=== PATIENT | female | born 1955 | race Hispanic/Latino ===

== ENCOUNTER → 2024-01-08 | Outpatient (CLI) | payer MEDICARE | END | disposition home or self-care (01) | LOC: LAB 10:37 | PROVIDERS: ATTEND Internal Medicine Cardiovascular Disease | DX: R00.2 Palpitations (principal) | CPT/HCPCS: 36415; 84443 ==

== ENCOUNTER → 2024-03-04 | Outpatient (CLI) | payer MEDICARE | END | disposition home or self-care (01) | LOC: SHCH 13:14 | PROVIDERS: ATTEND Internal Medicine Cardiovascular Disease | DX: I08.8 Other rheumatic multiple valve diseases (principal); R07.9 Chest pain, unspecified | CPT/HCPCS: 93306 ==

== ENCOUNTER 2024-04-05 07:50 | Day surgery (SDC) | payer MEDICARE ==
[2024-04-01 11:25] VITALS: BP 113/64; PULSE 80; RESP 19
[2024-04-01 11:44] LABS: BASOPHILS # (AUTO) 0.04 K/uL (0.00-0.20); BASOPHILS % (AUTO) 0.6 % (0.0-5.0); EOSINOPHILS # (AUTO) 0.07 K/uL (0.00-0.70); EOSINOPHILS % (AUTO) 1.1 % (0.0-8.0); HEMATOCRIT 40.6 % (36-48); IMMATURE GRANULOCYTE ABSOLUTE 0.02 K/uL (0-1); LYMPHOCYTES # (AUTO) 1.8 K/uL (1.0-4.8); LYMPHOCYTES % (AUTO) 27.3 % (21.0-51.0); MEAN CORPUSCULAR HGB CONC 33.3 g/dL (32.0-36.0); MEAN CORPUSCULAR VOLUME 96.2 fL (79-99); MONOCYTES # (AUTO) 0.4 K/uL (0.1-1.0); MONOCYTES % (AUTO) 6.4 % (3.0-13.0); NEUTROPHILS # (AUTO) 4.1 K/uL (1.8-7.7); NEUTROPHILS % (AUTO) 64.3 % (40.0-77.0); PLATELET COUNT (AUTO) 253 K/uL (130-400); RED BLOOD CELL COUNT(AUTO) 4.22 MIL/uL (4.00-5.50); RED CELL DISTRIBUTION WIDTH 12.8 % (11.0-15.5); WHITE BLOOD COUNT (AUTO) 6.4 K/uL (4.8-10.8)
[2024-04-01 12:10] LABS: PROTHROMBIN TIME 10.8 SEC (9.6-11.6)
[2024-04-01 12:12] LABS: PARTIAL THROMBOPLASTIN TIME 26.5 SEC (26.3-35.5)
[2024-04-01 12:15] LABS: CREATININE 0.9 mg/dL (0.5-1.0); POTASSIUM 4.4 mmol/L (3.5-5.1)
[2024-04-05] VITALS (20 sets, daily range): BP systolic 111–136; BP diastolic 44–75; PULSE 55–86; RESP 10–17
[~2024-04-05] VITALS: Ht 157.5 cm; Wt 71.4 kg
[~2024-04-05 07:50] MED LIST: ALEN35TA53 PO; ESTR1TAB17 PO
[2024-04-05] MEDS: CEFAZOLIN SODIUM 2 GM VIAL ONE (08:59)
[2024-04-05] MEDS: LACTATED RINGERS 1000ML 1,000 ML IV ONE (09:00)
[2024-04-05] MEDS ORDERED: BUPIVACAINE/PF 0.5% 30ML VIAL ONE (09:27)
[2024-04-05] MEDS ORDERED: DEXAMETHASONE SOD PHOSPHATE 10MG/ML 1ML VIAL ONE (09:52)
[2024-04-05] MEDS ORDERED: KETOROLAC 30MG VIAL (30MG/ML) ONE ×2 (09:52→11:03)
[2024-04-05] MEDS ORDERED: LIDOCAINE PF 100MG/5ML (2%) SYRINGE 5ML ONE (09:52)
[2024-04-05] MEDS ORDERED: ONDANSETRON 4MG INJ ONE (09:53)
[2024-04-05] MEDS ORDERED: NEOSTIGMINE METHYLSULFATE 1MG/ML IV ONE (09:53)
[2024-04-05] MEDS ORDERED: FENTANYL CITRATE PF 50 MCG/1 ML 2ML VIAL ONE ×2 (09:53→10:36)
[2024-04-05] MEDS ORDERED: PROPOFOL 10 MG/ML 20ML VIAL IV ONE (09:53)
[2024-04-05] MEDS ORDERED: GLYCOPYRROLATE 0.2 MG/ML 5 ML VIAL ONE (09:53)
[2024-04-05] MEDS ORDERED: MIDAZOLAM HCL 1 MG/ML 2ML VIAL ONE (09:54)
[2024-04-05] MEDS ORDERED: ROCURONIUM BROMIDE 10MG/1ML 5ML VL ONE (09:54)
[2024-04-05] MEDS ORDERED: IOHEXOL-350 50ML VIAL IV ONE (09:55)
[2024-04-05] MEDS ORDERED: ROPIVACAINE 0.5% 5MG/ML 30ML ONE (09:57)
[2024-04-05] MEDS ORDERED: TRAM50TA4 PO (11:17)
[2024-04-05] MEDS ORDERED: METH-662 PO (11:17)
[2024-04-05] MEDS ORDERED: GABA-529 PO (11:17)
[2024-04-05] MEDS ORDERED: DOCU-116 PO (11:17)
[2024-04-05] MEDS: ACETAMINOPHEN 1,000 MG/100 ML VIAL IV ONE (12:25)
[2024-04-05] MEDS: ONDANSETRON 4MG INJ ONE (12:31)
== END 2024-04-05 12:40 | disposition home or self-care (01) ==
LOC: DAH 07:50 → EDSTATUS 10:00 → DAH 12:40
PROVIDERS: ATTEND Surgery
DX: K80.10 Calculus of gallbladder with chronic cholecystitis without obstruction (principal); M81.0 Age-related osteoporosis without current pathological fracture; Z90.710 Acquired absence of both cervix and uterus; Z79.01 Long term (current) use of anticoagulants; Z79.899 Other long term (current) drug therapy
CPT/HCPCS: 80048; 85025; 85610; 85730; 86850 ×2; 86900 ×2; 86901 ×2; 36415 ×2; 93005; 64488; 47563; 88304; 74300; A4600 ×2; A4663; J7030; A4215 ×2; C1758; J7120; J3010 ×2; J1100; J3490 ×2; J2001; J2250; J2704; J2405 ×2; J1885 ×2; J2710; J2795; Q9967; J0690; G0168; A4649 ×2; A4930; A4223; A4213; A4222; A4221; J0665

== ENCOUNTER 2024-08-03 18:12 | Emergency (ER) | payer MEDICARE ==
[~2024-08-03] VITALS: Ht 165.1 cm; Wt 70.3 kg
[2024-08-03 18:12] VITALS: TEMP 97.6
[~2024-08-03 18:12] MED LIST changes: +DOCU-116 PO; +GABA-529 PO; +METH-662 PO; +TRAM50TA4 PO
[2024-08-03 19:14] LABS: APPEARANCE,URINE CLEAR (CLEAR); BILIRUBIN,URINE NEGATIVE (NEGATIVE); COLOR,URINE COLORLESS (YELLOW); GLUCOSE, URINE (UA) NEGATIVE (NEGATIVE); KETONES,URINE NEGATIVE (NEGATIVE); LEUKOCYTE ESTERASE ,URINE NEGATIVE Leu/uL (NEGATIVE); NITRATE,URINE NEGATIVE (NEGATIVE); OCCULT BLOOD,URINE NEGATIVE (NEGATIVE); PROTEIN,URINE NEGATIVE (NEGATIVE); UROBILINOGEN,URINE 0.2 mg/dL (0.2-1.0)
[2024-08-03 19:14] LABS: BASOPHILS # (AUTO) 0.08 K/uL (0.00-0.20); BASOPHILS % (AUTO) 0.9 % (0.0-5.0); EOSINOPHILS # (AUTO) 0.12 K/uL (0.00-0.70); EOSINOPHILS % (AUTO) 1.3 % (0.0-8.0); HEMATOCRIT 38.6 % (36-48); IMMATURE GRANULOCYTE ABSOLUTE 0.02 K/uL (0-1); LYMPHOCYTES # (AUTO) 2.7 K/uL (1.0-4.8); LYMPHOCYTES % (AUTO) 30.1 % (21.0-51.0); MEAN CORPUSCULAR HEMOGLOBIN 31.9 pg (27.0-33.0); MEAN CORPUSCULAR HGB CONC 33.9 g/dL (32.0-36.0); MEAN CORPUSCULAR VOLUME 93.9 fL (79-99); MONOCYTES # (AUTO) 0.6 K/uL (0.1-1.0); MONOCYTES % (AUTO) 6.5 % (3.0-13.0); NEUTROPHILS # (AUTO) 5.5 K/uL (1.8-7.7); PLATELET COUNT (AUTO) 252 K/uL (130-400); RED BLOOD CELL COUNT(AUTO) 4.11 MIL/uL (4.00-5.50); RED CELL DISTRIBUTION WIDTH 12.6 % (11.0-15.5)
[2024-08-03 19:17] LABS: ADD UA MICROSCOPIC YES
--- NOTE | 2024-08-03 19:17 | ERN ---
ED Note History of Present Illness Stated Complaint: LEFT LOWER BACK PAIN Chief Complaint: Back Pain-No Injury Time Seen by MD: 18:15 Time Seen by Midlevel: 18:15 Dictation: The patient is a 69-year-old female with a history of cholecystectomy who pres ents to the emergency department with complaints of left flank pain onset Thursday. Patient denies any urinary discomfort, hematuria, fevers, nausea vomiting or diarrhea, back trauma, urinary or fecal incontinence. Allergies: Coded Allergies: No Known Drug Allergies (Unverified Allergy, Unknown, 04/01/24) Home Meds Active Scripts Methocarbamol (Robaxin) 750 Mg Tab, 500 MG PO TID, #15 TAB 0 Refills Prov:HEMANTH CRUZ MD 04/05/24 Gabapentin (Gabapentin) 100 Mg Capsule, 100 MG PO TID, #15 CAP 0 Refills Prov:HEMANTH CRUZ MD 04/05/24 Docusate Sodium (Colace) 100 Mg Capsule, 100 MG PO BID, #30 CAP 0 Refills Prov:HEMANTH CRUZ MD 04/05/24 Tramadol Hcl (Tramadol HCl) 50 Mg Tablet, 50 MG PO Q6HPRN PRN for PAIN, #28 TAB 0 Refills Prov:HEMANTH CRUZ MD 04/05/24 Reported Medications Alendronate Sodium (Alendronate Sodium) 35 Mg Tablet, 35 MG PO QWEEK, TAB 04/01/24 Estradiol (Estradiol) 1 Mg Tablet, 1 MG PO DAILY, TAB 04/01/24 Past Medical History Past Medical History: Gallstones Surgical History: Cholecystectomy RN Note Reviewed/Agreed w/PFSH: Yes Review of System Dictation Constitutional: Negative for fever,chills, and weight loss Eyes: Negative for injury, pain,redness, and discharge ENT: Negative for injury,pain or swelling Cardiovascular: Negative for chest pain, palpitations, and edema Respiratory: Negative for shortness of breath, cough, and wheezing, Abdomen/GI: Negative for abdominal pain, nausea, vomiting, diarrhea, and constipation Back: Positive for left forearm pain : Negative for injury, bleeding and discharge MS/Extremity: Negative for injury and deformity Skin: Negative for rash, and discoloration Neuro: Negative for headache, weakness, numbness, tingling, and seizure Psych: Negative for suicide ideation, homicidal ideation, and hallucinations Initial Vital Sign VS Vital Signs Date Time Temp Pulse Resp B/P (MAP) Pulse Ox O2 Delivery O2 Flow Rate FiO2 08/03/24 18:12 97.5 90 14 159/67 96 Room Air 0 08/03/24 20:53 21 Physical Exam Dictation Vital Signs reviewed General Appearance: Alert, oriented x 3, no acute distress, well developed, nourished. Head and Face: non-traumatic. Eyes: PERRL, pink conjunctivas, eyelid no trauma, anterior chamber with arcus senilis. Ears: Pinnas intact and no signs of trauma or erythema ear canals clear and no discharge TM no erythema Nose: No discharge, no bleeding. Oropharynx: Mouth normal, tongue pink. pharynx clear,no erythema, tonsils no exudates, no abscesses noted, mucous membrane moist Neck: Supple, non-tender, no thyromegaly, no masses, no JVD, no bruits Breast:Deferred Chest:No tenderness, no crepitus, no paradoxical movement, no retractions Lungs:Clear, well-ventilated, symmetric, no rales, no wheezing, no rhonchi, no stridor, good breath sounds bilaterally Heart: Regular rate, regular rhythm, no murmur, no gallops Vascular: no peripheral edema, Abdomen: Soft, positive bowel sounds, nondistended, no guarding, nontender, no rebound, no masses no hepatomegaly, no splenomegaly, no Cabello's sign, no hernias. Rectal: Deferred Genital: Deferred Neurological: Normal speech, motor function intact, sensory function intact Musculoskeletal: Neck nontender, full range of motion, back nontender, full range of motion, Extremities: nontender, full range of motion Skin: Color pink, dry, no turgor, no rash, no lacerations, no abrasions, no contusions. Lymphatic: Deferred Results (Laboratory/Radiology) Laboratory/Radiology Laboratory Tests Test 08/03/24 19:01 08/03/24 19:04 Urine Color COLORLESS (YELLOW) Urine Appearance CLEAR (CLEAR) Urine pH 7.0 (5.0-8.0) Urine Specific [place] 1.005 (1.001-1.031) Urine Protein NEGATIVE mg/dL (NEGATIVE) Urine Glucose (UA) NEGATIVE mg/dL (NEGATIVE) Urine Ketones NEGATIVE mg/dL (NEGATIVE) Urine Occult Blood NEGATIVE (NEGATIVE) Urine Nitrate NEGATIVE (NEGATIVE) Urine Bilirubin NEGATIVE mg/dL (NEGATIVE) Urine Urobilinogen 0.2 mg/dL (0.2-1.0) Urine Leukocyte Esterase NEGATIVE Agnes/uL Urine RBC 0-1 /HPF (0-1) Urine WBC 2-5 /HPF (0-1) H Urine Squamous Epithelial Cells RARE /HPF (0-2) Urine Bacteria RARE /HPF (None Seen) White Blood Count 9.0 K/uL (4.8-10.8) Red Blood Count 4.11 MIL/uL (4.00-5.50) Hemoglobin 13.1 g/dL (12.0-16.0) Hematocrit 38.6 % (36-48) Mean Corpuscular Volume 93.9 fL (79-99) Mean Corpuscular Hemoglobin 31.9 pg (27.0-33.0) Mean Corpuscular Hemoglobin Concent 33.9 g/dL (32.0-36.0) Red Cell Distribution Width 12.6 % (11.0-15.5) Platelet Count 252 K/uL (130-400) Mean Platelet Volume 8.8 fL (7.5-10.5) Immature Granulocyte % (Auto) 0.2 % (0-1) Neutrophils (%) (Auto) 61.0 % (40.0-77.0) Lymphocytes (%) (Auto) 30.1 % (21.0-51.0) Monocytes (%) (Auto) 6.5 % (3.0-13.0) Eosinophils (%) (Auto) 1.3 % (0.0-8.0) Basophils (%) (Auto) 0.9 % (0.0-5.0) Neutrophils # (Auto) 5.5 K/uL (1.8-7.7) Lymphocytes # (Auto) 2.7 K/uL (1.0-4.8) Monocytes # (Auto) 0.6 K/uL (0.1-1.0) Eosinophils # (Auto) 0.12 K/uL (0.00-0.70) Basophils # (Auto) 0.08 K/uL (0.00-0.20) Absolute Immature Granulocyte (auto 0.02 K/uL (0-1) Nucleated Red Blood Cells 0.0 % (0.0-0.19) Sodium Level 136 mmol/L (136-145) Potassium Level 4.0 mmol/L (3.5-5.1) Chloride Level 98 mmol/L (101-111) L Carbon Dioxide Level 32 mmol/L (21-32) Blood Urea Nitrogen 13 mg/dL (7-18) Creatinine 1.1 mg/dL (0.5-1.0) H Glomerular Filtration Rate Calc 54 mL/min (>90) Random Glucose 112 mg/dL (70-105) H Total Calcium 8.8 mg/dL (8.5-10.1) REASON: R/O KIDNEY STONES ORDERING PHYSICIAN: BETTINA BOTELLO PROCEDURE: ABD PEL WO - CT ABDOMEN/PELVIS W/O CONTRAST CT ABDOMEN/PELVIS W/O CONTRAST INDICATION: R/O KIDNEY STONES. Flank pain. TECHNIQUE: CT ABDOMEN/PELVIS W/O CONTRAST. Oral contrast was not given. Coronal and sagittal reformats were performed. CT was performed with one or more of the following dose reduction techniques: Automated exposure control, adjustment of the mA and/or kV according to the patient's size, or use of the iterative reconstruction technique. Comparison: 07/21/2017 FINDINGS: The noncontrast nature this study limits evaluation of abdominal viscera. No pulmonary consolidation or pleural effusion is seen. There is hepatic steatosis. Cholecystectomy changes are noted. The spleen, pancreas, and adrenal glands are within normal limits. No hydronephrosis. The urinary bladder is partially collapsed. Hysterectomy changes are seen. There is no bowel obstruction. Diverticulosis coli without evidence of acute diverticulitis. There is no CT evidence of acute appendicitis. No hydronephrosis or renal calculus seen. Atherosclerotic changes of the aorta with calcified plaques. Degenerative changes of the spine are seen. IMPRESSION: 1. There is no bowel obstruction. Diverticulosis coli without evidence of acute diverticulitis. There is no CT evidence of acute appendicitis. 2. No hydronephrosis or renal calculus seen. Labs Reviewed?: Yes ED Course ED Course Orders Procedure Category Date Status Time Cbc With Differential LAB 08/03/24 Complete 18:33 Urinalysis Profile LAB 08/03/24 Complete 18:33 Ct Abdomen/Pelvis W/O CT 08/03/24 Resulted Contrast 18:33 0.9%Nacl 1000ml (Ns PHA 08/03/24 Complete 1000ml) 19:00 Ketorolac PHA 08/03/24 Complete Tromethamine 30mg/Ml 19:00 Basic Metabolic Panel LAB 08/03/24 Complete 18:33 Current Medications Medications (Trade) Dose Ordered Sig/Yelena Route PRN Reason Start Time Stop Time Status Last Admin Dose Admin Ketorolac Tromethamine (toRADol) 15 mg ONCE ONCE IVP 08/03/24 19:00 08/03/24 19:01 DC 08/03/24 20:38 Sodium Chloride 1,000 ml @ 0 mls/hr ONCE ONCE IV 08/03/24 19:00 08/03/24 19:01 DC 08/03/24 20:37 Vital Signs Date Time Temp Pulse Resp B/P (MAP) Pulse Ox O2 Delivery O2 Flow Rate FiO2 08/03/24 20:53 71 18 128/50 95 Room Air* 0 21 08/03/24 18:12 97.5 90 14 159/67 96 Room Air 0 Medical Decision Making MDM The patient is a 69-year-old female with a history of cholecystectomy who presents to the emergency department with complaints of left flank pain onset Thursday. Patient denies any urinary discomfort, hematuria, fevers, nausea vomiting or diarrhea, back trauma, urinary or fecal incontinence. CBC showed no leukocytosis, no anemia, chemistry showed slightly elevated BUN and creatinine, no electrolyte imbalance,, urinalysis unremarkable CT abdomen showed diverticulosis without diverticulitis, no other acute pathology. Labs and imaging discussed with the patient who agrees to follow up with primary doctor. Patient continues in no distress. Differential diagnosis: UTI, pyelonephritis, kidney stone, back strain Need for hospitalization: Patient does not meet criteria for hospitalization. There are no social concerns with this patient. DX & DISP Disposition: Discharge Departure Impression: Primary Impression: Left flank pain Additional Impressions: Muscle strain, Hypochloremia Condition: Stable Scripts Cyclobenzaprine HCl (Flexeril) 10 Mg Tab 10 MG PO TID for muscle sstiffness, #14 TAB 0 Refills Prov: BETTINA BOTELLO HOSPITALITY AIDE 08/03/24 Additional Instructions: Please follow up with primary doctor in 1-2 days. Please return to ER if symptoms worsen FOLLOW-UP WITH PRIMARY CARE PROVIDER IN 1 TO 2 DAYS. TAKE MEDICATIONS DIRECTED HERE IN THE EMERGENCY ROOM. OKAY TO CONTINUE HOME MEDICATIONS UNLESS OTHERWISE DISCUSSED DURING YOUR VISIT IN THE EMERGENCY ROOM TODAY. RETURN TO YOUR NEAREST EMERGENCY ROOM IF SYMPTOMS WORSEN OR IF THERE IS NO IMPROVEMENT. CALL 911 IF YOU NEED IMMEDIATE ASSISTANCE. TAKE TYLENOL OR MOTRIN [id number] NEEDED AND IF NO CONTRAINDICATIONS ARE PRESENT. INCREASE OR AL HYDRATION. A WOUND CULTURE OR URINE CULTURE WAS ORDERED HERE IN THE EMERGENCY ROOM DEPARTMENT PLEASE FOLLOW-UP WITH PRIMARY CARE PROVIDER AND ADVISE THEM TO GET REPEAT PORTS FROM OUR FACILITY. IF YOU HAD ANY JOSÉ WRAP/SPLINTS THAT WERE APPLIED HERE, PLEASE DO NOT REMOVE THEM UNTIL YOU SEE YOUR PRIMARY CARE OR SPECIALTY. Referrals: GENESIS LUNDY JR, MD (PCP) Time of Disposition: 22:00 I have reviewed the case, and I agree with, Diagnosis and Plan BETTINA BOTELLO Aug 03, 2024 19:17
[2024-08-03 19:18] LABS: BACTERIA,URINE RARE /HPF (None Seen); RBC,URINE 0-1 /HPF (0-1); SQUAMOUS EPITHELIAL CELL,UR RARE /HPF (0-2)
[2024-08-03 19:20] LABS: CREATININE 1.1 mg/dL (0.5-1.0)
[2024-08-03] MEDS: 0.9%NACL 1000ML 1,000 ML IV ONE (20:37)
[2024-08-03] MEDS: ketOROlac 30MG VIAL (30MG/ML) IVP ONE (20:38)
[2024-08-03 21:45] VITALS: BP 130/69; PULSE 68; RESP 18; O2SAT 97
--- NOTE | 2024-08-03 21:51 | HMCIMG ---
CT ABDOMEN/PELVIS W/O CONTRAST INDICATION: R/O KIDNEY STONES. Flank pain. TECHNIQUE: CT ABDOMEN/PELVIS W/O CONTRAST. Oral contrast was not given. Coronal and sagittal reformats were performed. CT was performed with one or more of the following dose reduction techniques: Automated exposure control, adjustment of the mA and/or kV according to the patient's size, or use of the iterative reconstruction technique. Comparison: 07/21/2017 FINDINGS: The noncontrast nature this study limits evaluation of abdominal viscera. No pulmonary consolidation or pleural effusion is seen. There is hepatic steatosis. Cholecystectomy changes are noted. The spleen, pancreas, and adrenal glands are within normal limits. No hydronephrosis. The urinary bladder is partially collapsed. Hysterectomy changes are seen. There is no bowel obstruction. Diverticulosis coli without evidence of acute diverticulitis. There is no CT evidence of acute appendicitis. No hydronephrosis or renal calculus seen. Atherosclerotic changes of the aorta with calcified plaques. Degenerative changes of the spine are seen. IMPRESSION: 1. There is no bowel obstruction. Diverticulosis coli without evidence of acute diverticulitis. There is no CT evidence of acute appendicitis. 2. No hydronephrosis or renal calculus seen.
[2024-08-03] MEDS ORDERED: CYCL10TA16 PO (22:03)
== END 2024-08-03 22:22 | disposition home or self-care (01) ==
LOC: EDH 18:12
DX: S39.011A Strain of muscle, fascia and tendon of abdomen, initial encounter (principal); K57.30 Diverticulosis of large intestine without perforation or abscess without bleeding; E87.8 Other disorders of electrolyte and fluid balance, not elsewhere classified; Z79.899 Other long term (current) drug therapy; Z90.49 Acquired absence of other specified parts of digestive tract; X58.XXXA Exposure to other specified factors, initial encounter; Y93.89 Activity, other specified; Y92.89 Other specified places as the place of occurrence of the external cause; Y99.8 Other external cause status
CPT/HCPCS: 99284; 74176; 96374; 96361; 80048; 85025; 81001; 36415; J7030; J1885